=== PATIENT | male | born 1950 | race Caucasian/White ===

== ENCOUNTER 2020-05-11 09:25 | Emergency (ER) | payer MEDICARE, MEDICAID, SELFPAY ==
--- NOTE | ~2020-05-11 | CT_ITS ---
EXAMINATION: CT ABDOMEN AND PELVIS WITH CONTRAST CLINICAL INFORMATION: Right-sided abdominal pain, palpable mass and nausea. COMPARISON: CT abdomen and pelvis with IV contrast 05/27/2017 TECHNIQUE: Multidetector volumetric images were obtained from the superior aspect of the liver through the pubic symphysis following administration 85 mL of Omnipaque 350 intravenous contrast. Sagittal and coronal reformatted images were obtained on the technologist's workstation. Oral contrast: No This CT examination was performed using dose optimization techniques as appropriate, variously including the following: *Automated exposure control *Adjustment of mA and/or kV according to patient size (this includes techniques or standardized protocols for targeted exams where dose is matched to indication/reason for exam; i.e. extremities or head) *Use of iterative reconstruction technique DLP: 462 mGy-cm FINDINGS: LUNG BASES: There is dependent bibasilar atelectasis. Heart size is normal. LIVER, GALLBLADDER, AND BILIARY TREE: The liver is normal in size, shape, and attenuation. No focal hepatic lesion or biliary ductal dilatation is present. The gallbladder is unremarkable with no evidence of radiopaque gallstones, gallbladder wall thickening, or obvious pericholecystic inflammatory changes. A small phrygian cap is seen. PANCREAS: Unremarkable. SPLEEN: Unremarkable. ADRENAL GLANDS: Unremarkable. KIDNEYS AND URETERS: The kidneys are normal in size, shape, and attenuation. There is tubular focal hyperdensity seen in the midpole calyx left kidney, likely tiny stone. There is partially exophytic cyst mid to lower pole measuring 2.68 cm. There is a small cortical scar posterior cortex midpole right kidney. BLADDER: The urinary bladder is mildly enlarged. GASTROINTESTINAL TRACT: There is scattered stool seen throughout the colon without any significant distention. The small bowel loops are normal caliber. The stomach is nondistended. Appendix is not seen. No free air or free fluid seen ABDOMINAL WALL: There is lower anterior abdominal wall hernia repair with mesh in place. LYMPH NODES: Normal. VASCULAR: Abdominal aorta is normal caliber. There is infrarenal IVC filter.. PELVIC VISCERA: The prostate gland is heterogenous and mildly enlarged. OSSEOUS STRUCTURES: No lytic or sclerotic process seen. CT/CT abdomen pelvis w con IMPRESSION: No acute intra-abdominal process seen. There is a phrygian cap gallbladder. No radiopaque gallstones or wall thickening seen. Mild constipation. Right renal exophytic cyst and a scar and likely a small nonobstructive radiopaque calculi mid pole left kidney. No change from previous exam 3:30 10/16/2017.
[2020-05-11 09:27] VITALS: BP 165/92; PULSE 73; RESP 18; TEMP 36.2; O2SAT 99; BMI 51.3
--- NOTE | 2020-05-11 10:02 | ED.ABDPAIN ---
HPI - Abdominal Pain General Chief Complaint: Abdominal Pain Stated Complaint: ABD PAIN Time Seen by Provider: 05/11/20 09:48 Source: patient Mode of arrival: ambulatory Limitations: language barrier History of Present Illness HPI narrative: 69 y/o male with history of HTN, DM, hx CVA on anticoagulation (unclear what) presenting with diffuse abdominal pain and nausea that has been worsening over the last 1 week. He states it has come and gone over the last 1 month but worsening lately. It is more on the right side and he can feel a small lump that comes out when he strains. It is tender. He denies vomiting, diarrhea, or constipation. No fever or chills. No urinary symptoms. MD elicited complaint: abdominal pain Pertinent past history: none Onset (ago): week(s) Pain Consistency: intermittent Location: diffuse, RUQ and RLQ Severity: moderate Quality: cramping and stabbing Migration to: no migration Exacerbating factors: movement Associated symptoms: nausea Related Data Previous Rx's Medication Instructions Recorded dicyclomine 10 mg PO TID #10 cap 05/11/20 ondansetron HCl [Zofran] 4 mg PO Q8H PRN #8 tab 05/11/20 Allergies Allergy/AdvReac Type Severity Reaction Status Date / Time shellfish derived Allergy Severe ANAPHYLAXIS Verified 05/11/20 12:30 [SHELLFISH DERIVED] shrimp [SHRIMP] Allergy Severe RASH Verified 05/11/20 12:30 aspirin [ASA] Allergy Mild SWELLING Verified 05/11/20 12:30 dicyclomine [From [facility]ENTYL] Allergy Mild STOMACH Verified 05/11/20 12:30 UPSET pregabalin [From LYRICA] Allergy Unknown UNK Verified 05/11/20 12:30 SHELLFISH Allergy Severe ANAPHYLAXIS Uncoded 05/11/20 12:30 COD FISH Allergy Mild STOMACH Uncoded 05/11/20 12:30 UPSET Review of Systems Review of Systems Constitutional: No Fever, No Chills ENT/Mouth: No sore throat, No Rhinorrhea, No Swallowing Difficulty Eyes: No Eye Pain, No Swelling, No Redness Cardiovascular: No Chest Pain, No SOB, No Orthopnea, No Edema Respiratory: No Cough, No Sputum, No Wheezing, No dyspnea Gastrointestinal: + Nausea, No Vomiting, No Diarrhea, + abdominal Pain, No Hematochezia, No Melena Genitourinary: No Dysuria, No Urinary Frequency, No Hematuria Musculoskeletal: No joint pain, No Myalgias Skin: No Skin Lesions, No rash Neuro: No Weakness, No Numbness, No Dizziness, No Headache Psych: No Anxiety/Panic, No Depression Heme/Lymph: No Bruising, No Lymphadenopathy Endocrine: No Polyuria, No Polydipsia Physical Exam Vital Signs: Vital Signs: Last Vital Signs Temp 97.2 F 05/11/20 09:27 Pulse 53 05/11/20 12:16 Resp 16 05/11/20 12:16 BP 148/76 H 05/11/20 12:16 Pulse Ox 98 05/11/20 12:16 Body Mass Index 51.3 Appearance: Alert. Oriented X3. No acute distress. Eyes: Pupils equal, round and reactive to light. ENT: Pharynx normal. Neck: Normal inspection. Neck supple. CVS: Normal heart rate and rhythm. Pulses normal. Respiratory: No respiratory distress. Breath sounds normal. Abdomen: Soft with right sided abdominal tenderness, possible palpable mass below adipose tissue which is able to reduce consistent with possible defect in the musculature/hernia. No skin changes. +BS x4 Skin: Skin warm and dry. Normal skin color. Normal skin turgor. No rashes. Extremities: No lower extremity edema. Neuro: Oriented X 3. No motor deficit. No sensory deficit. Course Course Course Narrative: 69 y/o male presenting with right sided abdominal pain/diffuse on/off x1 month, worsening over the last 1 week. Exam consistent with hernia which is able to be reduced, no signs of strangulation. Not septic. Will get CT scan w/ contrast for further evaluation as well as basic lab workup. IVF and Zofran ordered. Reevaluation(s) Reevaluation #1: Patient asleep and resting comfortably. His lab workup is unremarkable. CT scan showed no acute abnormality - phygian cap gallbladder noted which can be a normal variant. LFTs are all normal. Etiology of abdominal pain remains unclear. He has no vomiting or diarrhea here. Will give PO trial and collect UA to r/o infection. Reevaluation #2: UA negative. Patient continues to have minimal pain, tolerating PO. Stable for discharge with plans for diet modification and f/u with GI PRN. MDM - Abdominal Pain Lab Data Result diagrams: 05/11/20 10:14 05/11/20 10:14 Labs: Lab Results 05/11/20 05/11/20 05/11/20 Range/Units 10:14 10:14 10:14 WBC 14.4 H (4.8-10.8) X10*3/uL RBC 5.44 (4.60-5.80) X10*6/uL Hgb 15.8 (14.0-18.0) g/dl Hct 47.3 (42-52) % MCV 86.9 (80-98) fL MCH 29.0 (27.0-33.0) pg MCHC 33.4 (31.0-36.0) g/dl RDW 12.8 (11.0-16.0) % Plt Count 334 (160-400) X10*3/uL MPV 9.0 L (9.4-12.4) fL Immature Gran % (Auto) 0.3 (0.0-0.4) % Neut % (Auto) 84.5 H (45-73) % Lymph % (Auto) 6.8 L (20-40) % [place] % (Auto) 4.6 (2-11) % Eos % (Auto) 3.5 (0-4) % Baso % (Auto) 0.3 (0-2) % Lymph # (Auto) 1.0 L (1.2-4.9) X10*3/uL [place] # (Auto) 0.7 (0.1-1.2) X10*3/uL Eos # (Auto) 0.5 H (0.0-0.4) X10*3/uL Baso # (Auto) 0.0 (0.0-0.2) X10*3/uL Abs Immat Gran (auto) 0.05 H (0.00-0.03) X10*3/uL Absolute Neuts (auto) 12.2 H (2.0-8.3) X10*3/uL Absolute Nucleated RBC 0.000 (0.0-0.012) X10*3/uL Nucleated RBC % (auto) 0.0 (0.0-0.2) /100WBC PT 17.4 H (10.8-13.0) SEC INR 1.5 H (0.9-1.1) APTT 37.0 (24.1-38.0) SEC Hold Blue Top SEE NOTE Sodium 138 (135-145) mmol/L Potassium 4.5 (3.3-5.1) mmol/L Chloride 105 (96-108) mmol/L Carbon Dioxide 26 (22-29) mmol/L Anion Gap 12 (12-20) BUN 14 (9-16) mg/dL Creatinine 0.75 (0.5-1.4) mg/dL Estim Creat Clear Calc 123.8 Estimated GFR > 60 Random Glucose 122 H (60-115) mg/dL Calcium 9.2 (8.4-10.2) mg/dL Magnesium 1.9 (1.6-2.6) mg/dL Total Bilirubin 0.7 (0.0-1.0) mg/dL Direct Bilirubin 0.3 (0.0-0.5) mg/dL AST 17 (5-37) U/L ALT 16 (0-40) U/L Alkaline Phosphatase 65 (39-117) U/L Total Protein 7.0 (6.5-8.0) g/dL Albumin 4.1 (3.5-5.0) g/dL Lipase 14 (8-78) U/L Urine Color Urine Appearance Urine pH (5.0-8.0) Ur Specific [place] (1.005-1.025) Urine Protein (NEG-TRACE) MG/DL Urine Glucose (UA) (NEG) MG/DL Urine Ketones (NEG) MG/DL Urine Blood (NEG) Urine Nitrite (NEG) Ur Leukocyte Esterase (NEG) 05/11/20 Range/Units 13:06 WBC (4.8-10.8) X10*3/uL RBC (4.60-5.80) X10*6/uL Hgb (14.0-18.0) g/dl Hct (42-52) % MCV (80-98) fL MCH (27.0-33.0) pg MCHC (31.0-36.0) g/dl RDW (11.0-16.0) % Plt Count (160-400) X10*3/uL MPV (9.4-12.4) fL Immature Gran % (Auto) (0.0-0.4) % Neut % (Auto) (45-73) % Lymph % (Auto) (20-40) % [place] % (Auto) (2-11) % Eos % (Auto) (0-4) % Baso % (Auto) (0-2) % Lymph # (Auto) (1.2-4.9) X10*3/uL [place] # (Auto) (0.1-1.2) X10*3/uL Eos # (Auto) (0.0-0.4) X10*3/uL Baso # (Auto) (0.0-0.2) X10*3/uL Abs Immat Gran (auto) (0.00-0.03) X10*3/uL Absolute Neuts (auto) (2.0-8.3) X10*3/uL Absolute Nucleated RBC (0.0-0.012) X10*3/uL Nucleated RBC % (auto) (0.0-0.2) /100WBC PT (10.8-13.0) SEC INR (0.9-1.1) APTT (24.1-38.0) SEC Hold Blue Top Sodium (135-145) mmol/L Potassium (3.3-5.1) mmol/L Chloride (96-108) mmol/L Carbon Dioxide (22-29) mmol/L Anion Gap (12-20) BUN (9-16) mg/dL Creatinine (0.5-1.4) mg/dL Estim Creat Clear Calc Estimated GFR Random Glucose (60-115) mg/dL Calcium (8.4-10.2) mg/dL Magnesium (1.6-2.6) mg/dL Total Bilirubin (0.0-1.0) mg/dL Direct Bilirubin (0.0-0.5) mg/dL AST (5-37) U/L ALT (0-40) U/L Alkaline Phosphatase (39-117) U/L Total Protein (6.5-8.0) g/dL Albumin (3.5-5.0) g/dL Lipase (8-78) U/L Urine Color YELLOW Urine Appearance CLEAR Urine pH 7.0 (5.0-8.0) Ur Specific [place] 1.010 (1.005-1.025) Urine Protein NEG (NEG-TRACE) MG/DL Urine Glucose (UA) NEG (NEG) MG/DL Urine Ketones NEG (NEG) MG/DL Urine Blood NEG (NEG) Urine Nitrite NEG (NEG) Ur Leukocyte Esterase NEG (NEG) Discharge Plan Discharge Clinical Impression: Abdominal pain Qualifiers: Abdominal location: generalized Qualified Code(s): R10.84 - Generalized abdominal pain Patient Disposition: Home, Self-Care Instructions: Abdominal Pain (ED) Additional Instructions: Your lab workup today was normal. Your CT scan did not show any acute abnormalities. Cause of your abdominal pain is unknown. Recommend dietary modifications - sick to a bland diet for 1 week. Monitor what you eat. Take the prescribed medications as needed for cramping and nausea. Follow up with GI doctor. If your pain is worsening come back to the ER for further evaluation. Prescriptions: New ondansetron HCl [Zofran] 4 mg tablet 4 mg PO Q8H PRN (Reason: nausea and vomiting) Qty: 8 RF: 0 dicyclomine 10 mg capsule 10 mg PO TID Qty: 10 RF: 0 Referrals: Nu Marie MD [Physician] - 1 week Interventions: ED Discharge Assessment Last Done: 05/11/20 13:44 Discharge Date/Time: 05/11/20 13:51 [facility] Past Medical History Attestation statement: The following information was validated with the patient. Medical History (Updated 05/11/20 @ 13:41 by LEONARDO Chow) Diabetes Hypotension Stroke Social History Social History (System 05/11/20 @ 12:30 by Karina Jesus) Advance Directives: No Advance Directives Information Provided: No
[2020-05-11 10:18] LABS: MANUAL DIFF FLAG NO
[2020-05-11] MEDS: ondansetron HCL 4 MG/2 ML VIAL IVPUSH (10:19)
[2020-05-11] MEDS: 0.9 % Sodium Chloride 1,000 ML 999 ML IVCONT (10:19)
[2020-05-11 10:20] LABS: Basophils Percent Auto 0.3 % (0-2); Eosinophils Absolute Auto 0.5 X10*3/uL (0.0-0.4); Eosinophils Percent Auto 3.5 % (0-4); Hematocrit 47.3 % (42-52); Hemoglobin 15.8 g/dl (14.0-18.0); Imm Gran Abs Auto 0.05 X10*3/uL (0.00-0.03); Imm Gran Pct Auto 0.3 % (0.0-0.4); Lymphocytes Percent Auto 6.8 % (20-40); Mean Corpuscular HGB Conc 33.4 g/dl (31.0-36.0); Mean Corpuscular Volume 86.9 fL (80-98); Monocytes Absolute Auto 0.7 X10*3/uL (0.1-1.2); Monocytes Percent Auto 4.6 % (2-11); Neutrophils Absolute Auto 12.2 X10*3/uL (2.0-8.3); Neutrophils Percent Auto 84.5 % (45-73); Platelet Count 334 X10*3/uL (160-400); Red Blood Count 5.44 X10*6/uL (4.60-5.80); Red Cell Distribution Width 12.8 % (11.0-16.0); White Blood Count 14.4 X10*3/uL (4.8-10.8)
[2020-05-11 10:32] LABS: INTERNATIONAL NORM RATIO 1.5 (0.9-1.1); Prothrombin Time 17.4 SEC (10.8-13.0)
[2020-05-11 10:51] LABS: Alanine Aminotransferase 16 U/L (0-40); Albumin Level 4.1 g/dL (3.5-5.0); Alkaline Phosphatase 65 U/L (39-117); Anion Gap 12 (12-20); Aspartate Amino Transferase 17 U/L (5-37); Bilirubin Direct 0.3 mg/dL (0.0-0.5); Bilirubin Total 0.7 mg/dL (0.0-1.0); Blood Urea Nitrogen 14 mg/dL (9-16); Calcium 9.2 mg/dL (8.4-10.2); Carbon Dioxide 26 mmol/L (22-29); Chloride 105 mmol/L (96-108); Creatinine Clr Calc Pharmacy 123.8; Estimated Glomerular Filt Rate > 60; Glucose Random 122 mg/dL (60-115); Lipase 14 U/L (8-78); Magnesium 1.9 mg/dL (1.6-2.6); Potassium 4.5 mmol/L (3.3-5.1); Sodium 138 mmol/L (135-145)
[2020-05-11 12:16] VITALS: BP 148/76; PULSE 53; RESP 16; O2SAT 98
[2020-05-11 13:23] LABS: Glucose Urine UA NEG (NEG); Leukocyte Esterase Urine NEG (NEG); Nitrite Urine NEG (NEG); Urine Blood NEG (NEG); Urine Ketones NEG (NEG); Urine Protein NEG (NEG-TRACE)
[2020-05-11 13:28] LABS: Appearance Urine CLEAR; Color Urine YELLOW
== END 2020-05-11 13:51 | disposition home or self-care (01) ==
PROVIDERS: Physician Assistant; Emergency Provider Emergency Medicine
DX: R10.84 Generalized abdominal pain (principal); R11.0 Nausea; E11.9 Type 2 diabetes mellitus without complications; I95.9 Hypotension, unspecified; Z86.73 Personal history of transient ischemic attack (TIA), and cerebral infarction without residual deficits
CPT/HCPCS: 36415; 74177; 80048; 80076; 81003; 83690; 83735; 85025; 85610; 85730; 96361; 96374; 99284; J2405; Q9967